=== PATIENT | male | born 1970 | race Caucasian/White ===

== ENCOUNTER 2021-10-03 10:02 | Emergency (ER) | payer SELFPAY ==
[~2021-10-03] VITALS: Ht 180.3 cm; Wt 81.6 kg
[2021-10-03] MEDS ORDERED: LIDOCAINE 1% HCL (LOCAL ANESTH.) INJ 20ML MDV IJ ONE (10:30)
[2021-10-03 10:31] VITALS: BP 173/120
[2021-10-03] MEDS ORDERED: TETANUS-DIPTH-ACEL PERTUSSIS 0.5ML SYR Tdap IM ONE (10:45)
[2021-10-03] MEDS ORDERED: cefTRIAXone SOD 1,000 MG VL IM ONE (10:45)
[2021-10-03] MEDS ORDERED: NAPR500T31 PO (10:48)
[2021-10-03] MEDS ORDERED: AMOX-277 PO (10:48)
== END 2021-10-03 16:08 | disposition home or self-care (01) ==
LOC: EDBD 10:02 → ER 10:02
DX: S41.111A Laceration without foreign body of right upper arm, initial encounter (principal); W54.0XXA Bitten by dog, initial encounter; Y93.89 Activity, other specified; Y92.89 Other specified places as the place of occurrence of the external cause; Y99.8 Other external cause status
CPT/HCPCS: 12002; 90471; 90715; 96372; 99284; J0696